=== PATIENT | female | born 1995 | race Two or more races ===

== ENCOUNTER 2024-12-15 19:08 | Emergency (ER) | payer MEDICAID, OTHER ==
[~2024-12-15] VITALS: Ht 152.4 cm; Wt 61.2 kg
[2024-12-15 19:47] VITALS: BP 117/76; RESP 26; TEMP 98.7; O2SAT 100
[2024-12-15 19:54] VITALS: PULSE 89
[2024-12-15 20:58] LABS: COVID19 ANTIGEN SOFIA FIA NEGATIVE (NEGATIVE); Rapid Influenza A Negative (Negative); Rapid Influenza B Negative (Negative)
[2024-12-15] MEDS ORDERED: AUG875T PO (21:06)
[2024-12-15] MEDS ORDERED: METH4PAK PO (21:06)
--- NOTE | 2024-12-15 21:07 | ED.PDOC ---
SOB-HPI HPI Comments 29-YEAR-OLD FEMALE PRESENTS TO THE ED FLU-LIKE SYMPTOMS X4 DAYS. PATIENT STATES EVERYONE ELSE IS SICK AT HOME AND HAS GOTTEN OVER THE FLU SHE CONTINUES WITH SYMPTOMS. SHE IS COMPLAINING OF SHORTNESS OF BREATH, COUGH, FEVERS, HAND AND FINGER CRAMPING, DIZZINESS AND NAUSEA. DENIES DIFFICULTY BREATHING, CHEST PAIN, DIARRHEA AND VOMITING. Chief Complaint: Flu like Time Seen by MD: 19:13 Reviewed notes: Nurses Notes, Medications, Allergies Information Source: Patient Mode of Arrival: Ambulatory Past Medical History PAST MEDICAL HISTORY: Denies Surgical History: Denies all surgeries CASTING ROOM HELPER History: No Pertinent CASTING ROOM HELPER History Family History Family History: Reviewed,noncontributory to illness Social History Smoker: Non-Smoker Alcohol: Denies ETOH Use Drugs: Denies Drug Use Constitutional: reports: fever; denies: chills, diaphoresis, fatigue, malaise, sweats, weakness, others EENTM: reports: nasal discharge; denies: blurred vision, double vision, ear bleeding, ear discharge, ear drainage, ear pain, ear ringing, eye pain, eye redness, hearing loss, mouth pain, mouth swelling, nose bleeding, nose congestion, nose pain, photophobia, tearing, throat pain, throat swelling, voice changes, others Respiratory: reports: cough, shortness of breath; denies: hemoptysis, orthopnea, SOB at rest, SOB with excertion, stridor, wheezing, others Cardiovascular: reports: dizzy spells; denies: chest pain, diaphoresis, Dyspnea on exertion, edema, irregular heart beat, left arm pain, lightheadedness, palpitations, PND, syncope, others Gastrointestinal: denies: abdomen distended, abdominal pain, blood streaked bow els, constipated, diarrhea, dysphagia, difficulty swallowing, hematemesis, melena, nausea, poor appetite, poor fluid intake, rectal bleeding, rectal pain, vomiting, others Genitourinary: denies: abnormal vagina bleeding, burning, dyspareunia, dysuria, flank pain, frequency, hematuria, incontinence, pain, , vagina discharge, urgency, others Neurological: denies: dizziness, fainting, headache, left sided numbness, left sided weakness, numbness, paresthesia, pre-existing deficit, right sided numbness, right sided weakness, seizure, speech problems, tingling, tremors, weakness, others Musculoskeletal: denies: back pain, gout, joint pain, joint swelling, muscle pain, muscle stiffness, neck pain, others Integumetry: denies: bruises, change in color, change in hair/nails, dryness, laceration, lesions, lumps, rash, wounds, others Allergic/Immunocompromised: denies: Difficulty Healing, Frequent Infections, Hives, Itching, others Hematologic/Lymphatic: denies: anemia, blood clots, easy bleeding, easy bruisi ng, swollen glands, others Endocrine: denies: excessive hunger, excessive sweating, excessive thirst, exce ssive urination, flushing, intolerance to cold, intolerance to heat, unexplained weight gain, unexplained weight loss, others Psychiatric: denies: anxiety, bipolar disorder, depression, hopeless, panic disorder, schizophrenia, sleepless, suicidal, others Physical Exam General Appearance: No Apparent Distress, Normal HEENT: Pharyngeal Erythema, TMs Normal, Other (TONSILS ERYTHEMIC GRADE 3) Neck: Full Range of Motion, Non-Tender, Normal, Normal Inspection Respiratory: Chest Non-Tender, Lungs Clear, No Accessory Muscle Use, No Respiratory Distress, Normal Breath Sounds Cardiovascular: No Edema, No JVD, No Murmur, No Gallop, Normal Peripheral Pulses, Regular Rate/Rhythm Breast Exam: Deferred Gastrointestinal: No Organomegaly, Non Tender, No Pulsatile Mass, Normal Bowel Sounds, Soft Genitalia: Deferred Pelvic: Deferred Rectal: Deferred Extremities: Normal capillary refill, Normal inspection, Normal range of motion, Non-tender, No pedal edema Musculoskeletal : Apperance: Normal Neurologic: Alert, admission nurse coordinator II-XII nml as Tested, No Motor Deficits, Normal Affect, Normal Mood, No Sensory Deficits Cerebellar Function: Normal Reflexes: Normal Skin: Dry, Normal Color, Warm Lymphatic: No Adenopathy Was a procedure done? Was a procedure done?: No Differential Dx Differential Diagnosis: Panic Attack, Pneumonia, Sinusitis, URI X-Ray, Labs, Meds, VS Vital Signs Date Time Temp Pulse Resp B/P (MAP) Pulse Ox O2 Delivery O2 Flow Rate FiO2 12/15/24 19:54 89 12/15/24 19:47 98.7 87 26 117/76 (90) 100 12/15/24 19:47 Room Air 12/15/24 19:47 98.7 87 26 117/76 (90) 100 98.7 Lab Test 12/15/24 20:11 12/15/24 19:30 Range/Units Influenza Type A Antigen Negative Negative Influenza Type B Antigen Negative Negative SARS-CoV-2 Antigen (Rapid) Negative NEGATIVE POC Glucose 81 70-106 mg/dl X-Ray, Labs, Meds, VS Comment FLU AND COVID SWABS NEGATIVE. WE WILL TREAT TONSILLITIS. SCRIPT MEDROL DOSEPAK AND AUGMENTIN. ADVISED TO REST INCREASE P.O. FLUIDS WITH ELECTROLYTES.FOLLOW-UP WITH PCP IN 1 TO 2 DAYS. TAKE MEDICATIONS PRESCRIBED. RETURN TO ED FOR ANY NEW OR WORSENING SYMPTOMS. Time of 1ST Reevaluation: 21:03 Reevaluation 1ST: Improved Patient Education/Counseling: Diagnosis, Treatment, Prognosis, Need For Follow Up Family Education/Counseling: No Family Present Departure 1 Departure Time of Disposition: 21:04 Impression: Primary Impression: Acute tonsillitis Qualified Codes: J03.90 - Acute tonsillitis, unspecified Disposition: 01 HOME / SELF CARE / HOMELESS Condition: Stable e-Prescriptions Methylprednisolone (Medrol Dosepak) 4 Mg Pardeep 4 MG PO UD for 6 Days, #21 TAB UAD Prov: ABDI MERINO 12/15/24 Amoxicillin & Pot Clavulanate (AUGMENTIN TABLET) 875 Mg Tb 875 MG PO BID for 7 Days, #14 TAB Prov: ABDI MERINO 12/15/24 Discharged With: Self Critical Care Note Critical Care Time?: No Stability Stability form required: No Heart Score Heart Score: Heart Score Response (Comments) Value History N/A 0 EKG Normal 0 Age <45 0 Risk Factors N/A 0 Troponin N/A 0 Total 0 ABDI MERINO Dec 15, 2024 21:07
--- NOTE | 2024-12-16 13:58 | ECG ---
[facility] Test Date: 2024-12-15 Test Time: 19:54:15 Pat Name: SACHIN MICHEL Department: ER Room: Gender: F Envelope Sealer: CIELO : 1995 Requested By: ABDI MERINO Order Number: [id number] Reading MD: Elfego Mi Measurements Intervals [place] Rate: 89 P: 79 DE: 138 QRS: 60 QRSD: 80 T: -28 QT: 373 QTc: 454 Interpretive Statements Incomplete analysis due to missing data in precordial lead(s) Sinus rhythm Borderline T abnormalities, inferior leads Missing lead(s): V4 Electronically Signed On 12-20-2024 21:46:43 PST by Elfego Mi Please click the below link to view image of tracing.
== END 2024-12-15 21:10 | disposition home or self-care (01) ==
LOC: ER 19:08
DX: J03.90 Acute tonsillitis, unspecified (principal); R42 Dizziness and giddiness; R94.31 Abnormal electrocardiogram [ECG] [EKG]; Z20.822 Contact with and (suspected) exposure to COVID-19
CPT/HCPCS: 36415; 82947; 82962; 87426; 87804; 93005